=== PATIENT | female | born 1995 | race American Indian/Alaskan Native ===

== ENCOUNTER 2020-02-10 08:33 | Emergency (ER) | payer SELFPAY ==
[2020-02-10 08:39] VITALS: BP 132/90
--- NOTE | 2020-02-10 09:12 | Emergency Department Report ---
ED Chest Pain HPI - General Chief Complaint: Chest Pain Stated Complaint: CHEST TIGHT/LLOYD Time Seen by Provider: 02/10/20 09:12 Source: patient Mode of arrival: Ambulatory Limitations: No Limitations - History of Present Illness Initial Comments: 24 YO AA OB[place] FEMALE COMES TO ER WITH CP WITH DEEP BREATH. SHE HAS DM II. NO N/V/SOB/COUGH/FEVER OR CHILLS. NORMAL VS. AMBULATORY TO ER. NO CARDIAC HX. PMH DM DID NOT TAKE HER METFORMIN TODAY BG HIGH IN TRIAGE NO TACHYCARDIA OR HYPOTENSION NO POLYURIA/THIRST PT TRYING TO GET NEVER PREG IN PAST LMP 12/25 BUT SPOTTING THC JUST STOPPED SMOKING NO RECENT TRAVEL NON ILL APPEARING PAIN SOUNDS PLEURITIC IN NATURE-XRAY TO BENITA MATHEW MD Complaint: chest pain -: Gradual, days(s) Onset: other Pain Location: other (UNDER LEFT RIB CAGE/ NEAR LUQ) Pain Radiation: none Severity: mild Quality: sharp Consistency: intermittent Improves With: nothing Worsens With: inspiration Other Symptoms: denies: cough, fever, syncope, rash, acid taste in mouth, leg swelling, palpitations, burping Treatments Prior to Arrival: none Aspirin use within the Past 7 Days: (0) No - Related Data On Oral Contraceptives: No Allergies Allergy/AdvReac Type Severity Reaction Status Date / Time No Known Allergies Allergy Unverified 02/10/20 08:40 Heart Score - HEART Score History: Slightly suspicious EKG: Normal Age: < 45 Risk factors: No known risk factors Troponin: < normal limit HEART Score: 0 ED Review of Systems ROS: Stated complaint: CHEST TIGHT/LLOYD Other details as noted in HPI Comment: All other systems reviewed and negative ED Past Medical Hx - Past Medical History Previous Medical History?: Yes Hx Diabetes: Yes - Surgical History Past Surgical History?: No - Family History Family history: no significant - Social History Smoking Status: Current Every Day Smoker Substance Use Type: None ED Physical Exam - General Limitations: No Limitations General appearance: alert, in no apparent distress - Head Head exam: Present: atraumatic, normocephalic - Eye Eye exam: Present: normal appearance - ENT ENT exam: Present: mucous membranes moist - Neck Neck exam: Present: normal inspection - Respiratory Respiratory exam: Present: normal lung sounds bilaterally. Absent: respiratory distress - Cardiovascular Cardiovascular Exam: Present: regular rate, normal rhythm. Absent: systolic murmur, diastolic murmur, rubs, gallop - GI/Abdominal GI/Abdominal exam: Present: soft, normal bowel sounds - Extremities Exam Extremities exam: Present: normal inspection - Back Exam Back exam: Present: normal inspection - Neurological Exam Neurological exam: Present: alert, oriented X3 - Psychiatric Psychiatric exam: Present: normal affect, normal mood - Skin Skin exam: Present: warm, dry, intact, normal color. Absent: rash ED Course Vital Signs 02/10/20 08:37 Temperature 97.9 F Pulse Rate 77 Respiratory 20 Rate Blood Pressure 132/90 O2 Sat by Pulse 99 Oximetry TYRONE score - Tyrone Score Age > 65: (0) No Aspirin use within the Past 7 Days: (0) No 3 or more CAD Risk Factors: (0) No 2 or more Angina events in past 24 hrs: (0) No Known CAD with more than 50% Stenosis: (0) No Elevated Cardiac Markers: (0) No ST Deviation Greater than 0.5mm: (0) No TYRONE Score: 0 ED Medical Decision Making - EKG Data -: EKG Interpreted by Ca EKG shows normal: sinus rhythm Rate: normal - EKG Data When compared to previous EKG there are: no significant change Interpretation: no acute changes - Radiology Data Radiology results: report reviewed, image reviewed - Medical Decision Making Labs 02/10/20 02/10/20 08:52 09:15 POC Glucose 314 H Urine Color Straw Urine Turbidity Clear Urine pH 6.0 Ur Specific [place] 1.022 Urine Protein <15 mg/dl Urine Glucose (UA) >=500 Urine Ketones Neg Urine Blood Mod Urine Nitrite Neg Ur Reducing Substances Not Reportable Urine Bilirubin Neg Urine Ictotest Not Reportable Urine Urobilinogen < 2.0 Ur Leukocyte Esterase Neg Urine WBC (Auto) 1.0 Urine RBC (Auto) 3.0 U Epithel Cells (Auto) 2.0 Urine Bacteria (Auto) 1+ Urine Mucus Few Urine HCG, Qual Negative Vital Signs 02/10/20 08:37 Temperature 97.9 F Pulse Rate 77 Respiratory 20 Rate Blood Pressure 132/90 O2 Sat by Pulse 99 Oximetry XRAY NEG NO TACHYCARDIA/HYPOXIA NO CARDIAC HISTORY NEG PREG BG ELEVATED NO KETONURIA EDUCATED ON TAKING METFORMIN AND DIET GIVEN HER METFORMIN HERE IN ED INSTRUCTED TO TAKE OTC MEDS FOR ANY PAIN DC HOME WITH PCP FOLLOW UP PAUL SHE VERBLALIZES UNDERSTANDING - Differential Diagnosis PLEURITIC CP/URTI Critical care attestation.: If time is entered above; I have spent that time in minutes in the direct care of this critically ill patient, excluding procedure time. ED Disposition Clinical Impression: Diabetes mellitus, type II, Hyperglycemia, Non-cardiac chest pain Disposition: DC- TO HOME OR SELFCARE Is pt being admited?: No Does the pt Need Aspirin: No Condition: Stable Instructions: Chest Pain (ED), Diabetes Mellitus Type 2 in Adults (ED) Additional Instructions: DIABETIC DIET TAKE METFORMIN DAILY STAY WELL HYDRATED WITH WATER FOLLOW UP WITH PCP REFERRAL BELOW OVER THE COUNTER MOTRIN FOR PAIN- TAKE 800 MG EVERY 8 HOURS IF NEEDED- TAKE WITH FOOD NEG PREG TEST EKG AND CHEST XRAY NORMAL Referrals: PRIMARY CAREMD [Primary Care Provider] - 3-5 Days JOSE ENG MD [Staff Physician] - 3-5 Days Time of Disposition: 10:13
[2020-02-10 09:35] LABS: HCG Qualitative,Urine Negative (Negative)
[2020-02-10 09:37] LABS: Bacteria,Urine 1+ /HPF (Negative); Bilirubin,Urine NEG (Negative); Blood,Urine MOD (Negative); Color,Urine Straw (Yellow); Mucus,Urine FEW /HPF; Protein,Urine <15 mg/dL mg/dL (Negative); Urobilinogen,Urine < 2.0 mg/dL (<2.0)
--- NOTE | 2020-02-10 10:03 | XRay Report ---
CHEST 1 VIEW INDICATION: Chest Pain. COMPARISON: None FINDINGS: Support devices: None. Heart: Within normal limits. Lungs/Pleura: No acute air space or interstitial disease. Additional findings: None. IMPRESSION: 1. No acute findings. Signer Name: Dmitry Montalvo MD Signed: 02/10/2020 9:58 AM Workstation Name: [id number]
[2020-02-10] MEDS ORDERED: metFORMIN 500 MG TAB PO ONE (10:10)
== END 2020-02-10 10:49 | disposition home or self-care (01) ==
LOC: ED 08:33
DX: R07.89 Other chest pain (principal); E11.65 Type 2 diabetes mellitus with hyperglycemia; F17.200 Nicotine dependence, unspecified, uncomplicated
CPT/HCPCS: 71045; 81001; 81025; 82962; 93005

== ENCOUNTER 2021-04-07 21:56 | Emergency (ER) | payer SELFPAY ==
[2021-04-07] MEDS: IBUPROFEN 800 MG TAB PO ONE (23:27)
[2021-04-08] MEDS: IBUPROFEN 800 MG TAB PO ONE (00:19)
[2021-04-08] MEDS ORDERED: HYDROcodone/ACETAMINOPHEN 5-325 MG TAB PO ONE (06:21)
[2021-04-08] MEDS ORDERED: SULFAMETHOXAZOLE/TRIMETHOPRIM 800/160MG DS TAB PO ONE (06:53)
--- NOTE | 2021-04-08 06:54 | Emergency Department Report ---
HPI - General Chief Complaint: Extremity Injury, Upper Time Seen by Provider: 04/08/21 06:36 - HPI HPI: This is a 26-year-old -[place] female presents to the emergency department with the complaint of right hand pain and some swelling. Initially the patient thinks that she was bit or stung on the top of her right index finger, and there does appear to be a very tiny scab from some type of puncture wound. The pain started in the finger and started to radiate up into the hand. The next day, the patient accidentally hit her hand on the gearshift while trying to work her emergency break in her car and says that she immediately began having severe pain to the back of her right hand. She has not taken anything for symptoms prior to presentation. She is right-hand dominant. She has a past medical history of [id number] diabetes for which she takes Metformin. ED Past Medical Hx - Past Medical History Previous Medical History?: Yes Hx Diabetes: Yes - Surgical History Past Surgical History?: No - Social History Smoking Status: Current Every Day Smoker Substance Use Type: Marijuana - Medications Home Medications: Home Medications Medication Instructions Recorded Confirmed Last Taken Type metFORMIN [Glucophage] 500 mg PO QDAY 30 Days #30 tablet 05/04/20 Unknown Rx HYDROcodone/APAP 5-325 [Palmer 1 each PO Q6HR PRN #12 tablet 04/08/21 Unknown Rx 5/325] Sulfamethoxazole/Trimethoprim 1 each PO BID #14 tablet 04/08/21 Unknown Rx [Bactrim DS TAB] ED Review of Systems ROS: Stated complaint: SWELLING TO HAND RT Other details as noted in HPI Comment: All other systems reviewed and negative Constitutional: denies: chills, fever Eyes: denies: eye pain, vision change ENT: denies: ear pain, throat pain Respiratory: denies: cough, shortness of breath Cardiovascular: denies: chest pain, palpitations Gastrointestinal: denies: abdominal pain, vomiting Genitourinary: denies: dysuria, discharge Musculoskeletal: joint swelling (Right hand), arthralgia (Right hand) Skin: lesions (Some type of bite or sting to the right index finger). denies: rash Neurological: denies: headache, numbness Physical Exam - Physical Exam Vital Signs: Vital Signs 04/07/21 04/08/21 04/08/21 23:07 00:19 01:19 Temperature 98.1 F Pulse Rate 101 H Respiratory 16 16 16 Rate Blood Pressure 127/78 [Left] O2 Sat by Pulse 100 Oximetry Physical Exam: GENERAL: The patient is well-developed well-nourished. HENT: Normocephalic. Atraumatic. Patient has moist mucous membranes. EYES: Extraocular motions are intact. NECK: Supple. Trachea is midline. CHEST/LUNGS: Clear to auscultation. There is no respiratory distress noted. HEART/CARDIOVASCULAR: Regular. There is no tachycardia. There is no murmur. ABDOMEN: Abdomen is soft, nontender. Patient has normal bowel sounds. There is no abdominal distention. SKIN: There is some increased warmth to the dorsal of the right hand but no significant erythema. There is nonpitting swelling of the dorsal right hand and index and middle finger. There is a very small scab to the dorsal portion of the right index finger concerning for a previous puncture wound, bite or sting. NEURO: The patient is awake, alert, and oriented. The patient is cooperative. The patient has no focal neurologic deficits. Normal speech. MUSCULOSKELETAL: There is tenderness to palpation along the right dorsal hand and fingers. The patient is unable to completely make a fist due to swelling and discomfort, but is able to exhibit refractory products supervisor strength, 5 out of 5. Capillary refill less than 2 seconds and radial pulse +2/4 to the affected right hand and wrist. ED Course Vital Signs 04/07/21 04/08/21 04/08/21 23:07 00:19 01:19 Temperature 98.1 F Pulse Rate 101 H Respiratory 16 16 16 Rate Blood Pressure 127/78 [Left] O2 Sat by Pulse 100 Oximetry ED Medical Decision Making - Radiology Data Radiology results: image reviewed interpreted by me: X-ray of the right hand does not show any fracture, dislocations, signs of osteomyelitis, soft tissue gas, or any other acute process. - Medical Decision Making This patient presents to the emergency department with right hand pain and swelling. Initially there was concern for a insect bite or sting to the index finger of the right hand. The next day the patient also accidentally hit her dorsal hand on the gearshift in her car and said that she had immediate pain. On examination she is neurovascularly intact. She is able to move the hand and fingers, however she is unable to completely make a fist due to the pain and swelling. She is able to exhibit refractory products supervisor strength. X-ray of the hand did not show any fracture, dislocation, soft tissue gas, signs of osteomyelitis, or any acute process. The patient had an Accu-Chek that came back at about 300. She has not yet taken 3 different diabetes medications, including sliding scale insulin, yet this morning and therefore the patient will be discharged home to take her medications and check her blood sugar regularly. Patient was given pain medication and antibiotics. We discussed further monitoring for any increased swelling, development of fever or redness, increased pain, decreased range of mo tion of the hand or fingers, or any other signs or symptoms which require an immediate return to the emergency department. She has been given outpatient referrals for an orthopedist and instructed to follow-up with a PCP. Vital signs reassuring including being afebrile. Critical Care Time: No Critical care attestation.: If time is entered above; I have spent that time in minutes in the direct care of this critically ill patient, excluding procedure time. ED Disposition Clinical Impression: Hand pain, right, Hyperglycemia Cellulitis Qualifiers: Site of cellulitis: extremity Site of cellulitis of extremity: upper extremity Laterality: right Qualified Code(s): L03.113 - Cellulitis of right upper limb Hand contusion Qualifiers: Encounter type: initial encounter Laterality: right Qualified Code(s): S60.221A - Contusion of right hand, initial encounter Disposition: DC- TO HOME OR SELFCARE Is pt being admited?: No Condition: Stable Instructions: Cellulitis, Adult, Contusion, Hyperglycemia, Blood Glucose Monitoring, Adult, Hand Pain Additional Instructions: Please follow-up with a primary care physician in the next few days. Take all medications as prescribed. Try to stay away from foods that are high in sugar, carbohydrates and starches. Keep a blood sugar log. Please monitor your hand for any increased signs of infection such as increased pain, increased swelling, development of redness to the skin, development of fever. You have been prescribed a medication that is sedating and therefore should not be taken prior to driving, working, and responsible for children and in no way should be mixed with alcohol of any quantity. Return to the emergency department with any worsening of your symptoms, new or concerning symptoms not addressed during this current emergency department visit, or with any acute distress. Prescriptions: Sulfamethoxazole/Trimethoprim [Bactrim DS TAB] 1 each PO BID #14 tablet HYDROcodone/APAP 5-325 [Palmer 5/325] 1 each PO Q6HR PRN #12 tablet PRN Reason: Pain Referrals: [facility] [Provider Group] - 3-5 Days Time of Disposition: 07:33
--- NOTE | 2021-04-08 07:03 | XRay Report ---
Right hand 3 views INDICATION: Right hand pain and swelling IMPRESSION: Prominent swelling identified along the dorsal aspect of the right hand. No underlying os seous abnormality. Signer Name: Frantz Mcintyre MD Signed: 04/08/2021 6:58 AM Workstation Name: [id number]
[2021-04-08 08:12] VITALS: BP 139/82
== END 2021-04-08 08:14 | disposition home or self-care (01) ==
LOC: ED 21:56
DX: S60.221A Contusion of right hand, initial encounter (principal); L03.113 Cellulitis of right upper limb; M79.641 Pain in right hand; E11.65 Type 2 diabetes mellitus with hyperglycemia; F12.90 Cannabis use, unspecified, uncomplicated; F17.200 Nicotine dependence, unspecified, uncomplicated; Z79.899 Other long term (current) drug therapy; X58.XXXA Exposure to other specified factors, initial encounter; Y93.89 Activity, other specified; Y92.89 Other specified places as the place of occurrence of the external cause; Y99.8 Other external cause status
CPT/HCPCS: 82962

== ENCOUNTER 2021-06-06 20:09 | Emergency (ER) | payer SELFPAY ==
[2021-06-07 01:26] LABS: Basophils # (Auto) 0.1 K/mm3 (0.0-0.1); Basophils % (Auto) 0.5 % (0.0-1.8); Hematocrit 46.1 % (30.3-42.9); Hemoglobin 15.6 gm/dl (10.1-14.3); Lymphocytes # (Auto) 2.4 K/mm3 (1.2-5.4); Lymphocytes % (Auto) 15.5 % (13.4-35.0); Mean Corpuscular HGB Conc 34 % (30-34); Mean Corpuscular Volume 86 fl (79-97); Monocytes # (Auto) 0.9 K/mm3 (0.0-0.8); Monocytes % (Auto) 5.9 % (0.0-7.3); Platelet Count 462 K/mm3 (140-440); Red Blood Count 5.37 M/mm3 (3.65-5.03); Red Cell Distribution Width 12.8 % (13.2-15.2)
[2021-06-07 01:49] LABS: Blood Urea Nitrogen 16 mg/dL (7-17); Calcium 10.5 mg/dL (8.4-10.2); Hemolysis Index 20
[2021-06-07 01:50] LABS: BUN/Creatinine Ratio 23
[2021-06-07] MEDS: ONDANSETRON 4 MG ODT TAB PO ONE ×2 (03:08→11:11)
[2021-06-07 06:48] LABS: Bilirubin,Urine NEG (Negative); Blood,Urine SM (Negative); Color,Urine Yellow (Yellow); Mucus,Urine FEW /HPF; Urobilinogen,Urine < 2.0 mg/dL (<2.0)
[2021-06-07 06:49] LABS: HCG Qualitative,Urine Negative (Negative)
[2021-06-07] MEDS ORDERED: ONDANSETRON 4 MG/2 ML INJ IV ONE (09:12)
[2021-06-07] MEDS ORDERED: SODIUM CHLORIDE 0.9% 1000 ML 2,000 ML IV ONE (09:12)
--- NOTE | 2021-06-07 10:34 | Emergency Department Report ---
ED N/V/D HPI - General Chief complaint: Abdominal Pain Stated complaint: BEEN VOMITING SINCE Time Seen by Provider: 06/07/21 09:32 Source: patient Mode of arrival: Ambulatory Limitations: No Limitations - History of Present Illness Initial comments: 26-year-old female, history of diabetes, presents to ED with nausea and vomiting x4 days. Patient reports abdominal pain only when she is vomiting. She denies any fever, diarrhea, loss of smell or taste, cough. Patient reports she started having some shortness of breath when she arrived to the ED. Patient has NOT received a COVID-19 vaccine. Patient has not been tested for COVID-19 either. MD complaint: nausea, vomiting -: days(s) (4) Associated Abdominal Pain: No Severity: moderate Consistency: constant Improves with: none Worsens with: eating Associated Symptoms: headaches, shortness of breath, weakness. denies: cough, fever/chills - Related Data Previous Rx's Medication Instructions Recorded Last Taken Type metFORMIN [Glucophage] 500 mg PO QDAY 30 Days #30 tablet 05/04/20 06/06/21 Rx Ondansetron [Zofran Odt] 4 mg PO Q8HR PRN #20 tab.rapdis 06/07/21 Unknown Rx Allergies Allergy/AdvReac Type Severity Reaction Status Date / Time No Known Allergies Allergy Unverified 02/10/20 08:40 ED Review of Systems ROS: Stated complaint: BEEN VOMITING SINCE Other details as noted in HPI Comment: All other systems reviewed and negative Constitutional: denies: fever Respiratory: shortness of breath. denies: cough Gastrointestinal: nausea, vomiting. denies: abdominal pain, diarrhea Skin: denies: rash ED Past Medical Hx - Past Medical History Hx Diabetes: Yes - Social History Smoking Status: Current Every Day Smoker Substance Use Type: Marijuana - Medications Home Medications: Home Medications Medication Instructions Recorded Confirmed Last Taken Type metFORMIN [Glucophage] 500 mg PO QDAY 30 Days #30 tablet 05/04/20 06/07/21 06/06/21 Rx Ondansetron [Zofran Odt] 4 mg PO Q8HR PRN #20 tab.rapdis 06/07/21 Unknown Rx ED Physical Exam - General Limitations: No Limitations General appearance: alert, in no apparent distress - Head Head exam: Present: atraumatic, normocephalic - Eye Eye exam: Present: normal appearance, EOMI - ENT ENT exam: Present: mucous membranes moist - Neck Neck exam: Present: normal inspection - Respiratory Respiratory exam: Present: normal lung sounds bilaterally. Absent: respiratory distress - Cardiovascular Cardiovascular Exam: Present: regular rate, normal rhythm - GI/Abdominal GI/Abdominal exam: Present: soft. Absent: distended, tenderness - Extremities Exam Extremities exam: Present: normal inspection - Neurological Exam Neurological exam: Present: alert, oriented X3 - Psychiatric Psychiatric exam: Present: normal affect, normal mood - Skin Skin exam: Present: warm, dry, intact, normal color ED Course Vital Signs 06/07/21 06/07/21 06/07/21 00:37 11:14 12:11 Temperature 98.0 F 97.1 F L 98.6 F Pulse Rate 101 H 55 L 68 Respiratory 18 16 20 Rate Blood Pressure 133/98 144/93 Blood Pressure 130/88 [Left] O2 Sat by Pulse 97 98 99 Oximetry ED Medical Decision Making - Lab Data Result diagrams: 06/07/21 00:57 06/07/21 00:57 - Radiology Data Radiology results: report reviewed, image reviewed - Medical Decision Making 26-year-old female, history of diabetes, presents to ED with nausea and vomiting x4 days. Patient denies any abdominal pain, except for when she is actively vomiting. Patient is afebrile. WBCs are elevated to 15.2. Abdomen is soft, nontender. Glucose is elevated to 377, however patient does not appear to be in DKA. Patient given p.o. Zofran. No further emesis here in the ED. Patient able to drink 2 cups of water.vomiting. Patient feels comfortable with discharge home. Acute abdominal series shows no acute findings in the chest or abdomen. Patient will be discharged home with prescriptions. Patient advised to obtain outpatient COVID-19 testing. Return precautions given. - Differential Diagnosis Viral illness, DKA, bowel obstruction Critical care attestation.: If time is entered above; I have spent that time in minutes in the direct care of this critically ill patient, excluding procedure time. ED Disposition Clinical Impression: Nausea & vomiting, Hyperglycemia due to type 2 diabetes mellitus Disposition: HOME / SELF CARE / HOMELESS Is pt being admited?: No Condition: Stable Instructions: COVID-19, Nausea and Vomiting, Adult, [id number], Diabetes Mellitus Type 2 in Adults (ED), Abdominal Pain (ED) Additional Instructions: It is advised that you obtain outpatient COVID-19 testing. Quarantine as necessary. Return to emergency room if your symptoms worsen. Prescriptions: Ondansetron [Zofran Odt] 4 mg PO Q8HR PRN #20 tab.rapdis PRN Reason: Vomiting Referrals: PRIMARY CARE, [Primary Care Provider] - 3-5 Days [facility] [Provider Group] - 3-5 Days Forms: Work/School Release Form(ED) Time of Disposition: 11:59
--- NOTE | 2021-06-07 11:10 | XRay Report ---
ABDOMINAL SERIES WITH CHEST X-RAY ONE VIEW HISTORY: Vomiting, shortness of breath COMPARISON: None. IMPRESSION: Single view of the chest is within normal limits. Supine and upright views of the abdomen demonstrate no evidence for dilated bowel, fluid levels or free air. No pathologic calcifications. U nremarkable abdominal series. Signer Name: Rob Hanna Jr, MD Signed: 06/07/2021 11:06 AM Workstation Name: [id number]
[2021-06-07 12:13] VITALS: BP 130/88
== END 2021-06-07 12:11 | disposition home or self-care (01) ==
LOC: ED 20:09
DX: E11.65 Type 2 diabetes mellitus with hyperglycemia (principal); R11.2 Nausea with vomiting, unspecified; F17.200 Nicotine dependence, unspecified, uncomplicated; F12.90 Cannabis use, unspecified, uncomplicated; Z79.899 Other long term (current) drug therapy
CPT/HCPCS: 36415; 74022; 80048; 81001; 81025; 85025; 99284; J7030; J2405; Q0162

== ENCOUNTER 2021-07-18 20:22 | Emergency (ER) | payer SELFPAY ==
[2021-07-18 20:53] VITALS: BP 120/88
[2021-07-18] MEDS ORDERED: SODIUM CHLORIDE 0.9% 1000 ML 1,000 ML IV ONE (21:05)
[2021-07-18] MEDS ORDERED: ONDANSETRON 4 MG/2 ML INJ IV STA (21:05)
[2021-07-18 21:37] LABS: Basophils # (Auto) 0.1 K/mm3 (0.0-0.1); Basophils % (Auto) 0.4 % (0.0-1.8); Eosinophils % (Auto) 0.1 % (0.0-4.3); Hematocrit 41.7 % (30.3-42.9); Hemoglobin 14.4 gm/dl (10.1-14.3); Lymphocytes # (Auto) 2.3 K/mm3 (1.2-5.4); Lymphocytes % (Auto) 14.1 % (13.4-35.0); Mean Corpuscular HGB Conc 35 % (30-34); Mean Corpuscular Volume 85 fl (79-97); Monocytes % (Auto) 6.3 % (0.0-7.3); Platelet Count 425 K/mm3 (140-440); Red Blood Count 4.93 M/mm3 (3.65-5.03); Red Cell Distribution Width 13.3 % (13.2-15.2)
[2021-07-18 21:48] LABS: Alanine Aminotransferase 6 units/L (7-56); Albumin 3.9 g/dL (3.9-5); Blood Urea Nitrogen 10 mg/dL (7-17); Calcium 9.4 mg/dL (8.4-10.2); Hemolysis Index 26
[2021-07-18 22:02] LABS: BUN/Creatinine Ratio 14
--- NOTE | 2021-07-18 22:06 | Emergency Department Report ---
ED N/V/D HPI - General Chief complaint: Nausea/Vomiting/Diarrhea Stated complaint: VOMITTING,NAUSEATED, WEAKNESS Time Seen by Provider: 07/18/21 21:05 Source: patient Mode of arrival: Ambulatory Limitations: No Limitations - History of Present Illness Initial comments: 26-year-old F [place] female [facility] emerge department complaining of a few day history of nausea and vomiting without diarrhea with a suspicion of Mr. For the last couple months. Ports no fever, chills, sweats. No hemoptysis no hematemesis hematochezia. She reports no abdominal no trauma. MD complaint: nausea, vomiting Location: diffuse Radiation: none Quality: aching, dull Consistency: constant Worsens with: eating Associated Symptoms: nausea/vomiting. denies: cough, diaphoresis, loss of a ppetite, malaise, shortness of breath, syncope - Related Data Previous Rx's Medication Instructions Recorded Last Taken Type metFORMIN [Glucophage] 500 mg PO QDAY 30 Days #30 tablet 05/04/20 06/06/21 Rx Ondansetron [Zofran Odt] 4 mg PO Q8HR PRN #20 tab.rapdis 06/07/21 Unknown Rx Ondansetron [Zofran Odt] 4 mg PO Q8HR #14 tab.rapdis 07/19/21 Unknown Rx Allergies Allergy/AdvReac Type Severity Reaction Status Date / Time No Known Allergies Allergy Verified 07/18/21 21:05 ED Review of Systems ROS: Stated complaint: VOMITTING,NAUSEATED, WEAKNESS Other details as noted in HPI Comment: All other systems reviewed and negative ED Past Medical Hx - Past Medical History Previous Medical History?: Yes Hx Diabetes: Yes - Surgical History Past Surgical History?: No - Social History Smoking Status: Current Some Day Smoker Substance Use Type: Marijuana - Medications Home Medications: Home Medications Medication Instructions Recorded Confirmed Last Taken Type metFORMIN [Glucophage] 500 mg PO QDAY 30 Days #30 tablet 05/04/20 06/07/21 06/06/21 Rx Ondansetron [Zofran Odt] 4 mg PO Q8HR PRN #20 tab.rapdis 06/07/21 Unknown Rx Ondansetron [Zofran Odt] 4 mg PO Q8HR #14 tab.rapdis 07/19/21 Unknown Rx ED Physical Exam - General Limitations: No Limitations General appearance: alert, in no apparent distress - Head Head exam: Present: atraumatic, normocephalic - Eye Eye exam: Present: normal appearance, PERRL, EOMI Pupils: Present: normal accommodation - ENT ENT exam: Present: normal exam, mucous membranes moist - Neck Neck exam: Present: normal inspection - Respiratory Respiratory exam: Present: normal lung sounds bilaterally. Absent: respiratory distress - Cardiovascular Cardiovascular Exam: Present: regular rate, normal rhythm. Absent: systolic murmur, diastolic murmur, rubs, gallop - GI/Abdominal GI/Abdominal exam: Present: soft, normal bowel sounds - Extremities Exam Extremities exam: Present: normal inspection - Back Exam Back exam: Present: normal inspection - Neurological Exam Neurological exam: Present: alert, oriented X3 - Psychiatric Psychiatric exam: Present: normal affect, normal mood - Skin Skin exam: Present: warm, dry, intact, normal color. Absent: rash ED Course Vital Signs 07/18/21 20:49 Temperature 98.3 F Pulse Rate 85 Respiratory 18 Rate Blood Pressure 120/88 O2 Sat by Pulse 97 Oximetry ED Medical Decision Making - Lab Data Result diagrams: 07/18/21 21:16 07/18/21 21:16 - Medical Decision Making The cause of the patient symptoms not clear but the patient is overall well- appearing and suspected to have a transient course of illness. Given the course and examination does not appear to be an emergent cause of the symptoms such as small bowel obstruction, coronary syndrome, bowel ischemia, DKA, pancreatitis, appendicitis, other acute abdomen or other emergent problem. Reassessment after treatment the patient is feeling much much better tolerating p.o. fluids and shows no signs of any dehydration. Disposition discharge home with prompt primary care physician follow-up in the next 24 hours strict return precautions were discussed Critical care attestation.: If time is entered above; I have spent that time in minutes in the direct care of this critically ill patient, excluding procedure time. ED Disposition Clinical Impression: Nausea & vomiting Disposition: 01 HOME / SELF CARE / HOMELESS Is pt being admited?: No Does the pt Need Aspirin: No Condition: Stable Instructions: Nausea, Adult, Nausea and Vomiting, Adult Additional Instructions: You have been evaluated emergency department today for nausea and vomiting and vague abdominal discomfort. Your evaluation did not show evidence of any medical conditions requiring emergent intervention at this time. Your lipase was it was elevated but not to a significant degree significant pancreatitis does not appear to be present at this time please drink plenty of fluids. Please schedule an appointment with your primary care physician. Return to emergency department if you experience worsening uncontrolled pain, fevers of 100.4 or greater, recurrent vomiting, inability to tolerate food or fluids by mouth, bloody stools or vomit, black tarry stools, or any other concerning symptoms. Prescriptions: Ondansetron [Zofran Odt] 4 mg PO Q8HR #14 tab.rapdis Referrals: PRIMARY CARE, [Primary Care Provider] - 3-5 Days [facility] [Provider Group] - 3-5 Days
[2021-07-19 06:02] LABS: Bacteria,Urine 1+ /HPF (Negative); Bilirubin,Urine MOD (Negative); Blood,Urine NEG (Negative); Color,Urine Amber (Yellow); Mucus,Urine 3+ /HPF
[2021-07-19 06:09] LABS: HCG Qualitative,Urine Negative (Negative)
[2021-07-19 06:46] LABS: Ictotest,Urine Negative (Negative)
== END 2021-07-19 05:35 | disposition home or self-care (01) ==
LOC: ED 20:22
DX: R11.2 Nausea with vomiting, unspecified (principal); E11.9 Type 2 diabetes mellitus without complications; F17.200 Nicotine dependence, unspecified, uncomplicated; Z72.89 Other problems related to lifestyle; Z79.899 Other long term (current) drug therapy
CPT/HCPCS: 36415; 80053; 81001; 81025; 83690; 85025; 96361; 96374; 99283; J2405; J7030

== ENCOUNTER 2022-05-18 09:15 | Emergency (ER) | payer SELFPAY ==
[2022-05-18 09:43] VITALS: BP 118/81
--- NOTE | 2022-05-18 10:36 | XRay Report ---
RIGHT ELBOW 3 VIEW(S) INDICATION / CLINICAL INFORMATION: injury COMPARISON: None available. FINDINGS: BONES / JOINT(S): No acute fracture or subluxation. No significant arthritis. SOFT TISSUES: No significant abnormality. ADDITIONAL FINDINGS: None. IMPRESSION: 1. No acute findings. Signer Name: Gautam Driver MD Signed: 05/18/2022 10:32 AM Workstation Name: [facility]
[2022-05-18] MEDS ORDERED: KETOROLAC 10 MG TAB PO ONE (10:47)
[2022-05-18] MEDS ORDERED: ACETAMINOPHEN W/CODEINE 300-30 MG TAB PO ONE (10:47)
--- NOTE | 2022-05-18 11:03 | Emergency Department Report ---
ED Fall HPI - General Chief Complaint: Extremity Injury, Upper Stated Complaint: RT ARM/ELBOW INJURY Time Seen by Provider: 05/18/22 10:40 Source: patient Mode of arrival: Ambulatory - History of Present Illness Initial Comments: 27-year-old black female with a past medical history of diabetes presents to the emergency department for evaluation of right elbow pain. She states that she fell off of a 6 step ladder 2 days ago and has had right elbow pain since then. She denies loss of consciousness. MD Complaint: fall -: Sudden, days(s) (1) Fall From: other (6 stepladder) When Fall Occurred: 24 hours [employer] Fall Witnessed: yes, by family Prolonged Down Time?: no Symptoms Prior to Fall: none Location - Extremities: Right: Elbow Severity: severe Severity scale (0 -10): 9 Quality: aching Associated Symptoms: denies: headache, neck pain, chest paint, shortness of breath, abdominal pain, hematuria, unable to walk, lightheaded, vertigo, confusion - Related Data Previous Rx's Medication Instructions Recorded Last Taken Type metFORMIN [Glucophage] 500 mg PO QDAY 30 Days #30 tablet 05/04/20 06/06/21 Rx Ondansetron [Zofran Odt] 4 mg PO Q8HR PRN #20 tab.rapdis 06/07/21 Unknown Rx Ondansetron [Zofran Odt] 4 mg PO Q8HR #14 tab.rapdis 07/19/21 Unknown Rx Cyclobenzaprine [Flexeril] 10 mg PO TID PRN #30 tab 05/18/22 Unknown Rx Naproxen [Naprosyn] 500 mg PO BID #14 tab 05/18/22 Unknown Rx Allergies Allergy/AdvReac Type Severity Reaction Status Date / Time No Known Allergies Allergy Verified 07/18/21 21:05 ED Review of Systems ROS: Stated complaint: RT ARM/ELBOW INJURY Other details as noted in HPI Comment: All other systems reviewed and negative Constitutional: denies: chills, fever Eyes: denies: vision change Respiratory: denies: shortness of breath Cardiovascular: denies: chest pain, palpitations Gastrointestinal: denies: abdominal pain, nausea, vomiting Musculoskeletal: denies: back pain Neurological: denies: headache, weakness ED Past Medical Hx - Past Medical History Hx Diabetes: Yes - Surgical History Past Surgical History?: No - Social History Smoking Status: Current Some Day Smoker Substance Use Type: Marijuana - Medications Home Medications: Home Medications Medication Instructions Recorded Confirmed Last Taken Type metFORMIN [Glucophage] 500 mg PO QDAY 30 Days #30 tablet 05/04/20 06/07/21 Rx Ondansetron [Zofran Odt] 4 mg PO Q8HR PRN #20 tab.rapdis 06/07/21 Unknown Rx Ondansetron [Zofran Odt] 4 mg PO Q8HR #14 tab.rapdis 07/19/21 Unknown Rx Cyclobenzaprine [Flexeril] 10 mg PO TID PRN #30 tab 05/18/22 Unknown Rx Naproxen [Naprosyn] 500 mg PO BID #14 tab 05/18/22 Unknown Rx ED Physical Exam - General Limitations: No Limitations General appearance: alert, in no apparent distress - Head Head exam: Present: atraumatic, normocephalic - Eye Eye exam: Present: normal appearance. Absent: conjunctival injection - Neck Neck exam: Present: normal inspection, full ROM. Absent: tenderness, lymphadenopathy - Respiratory Respiratory exam: Absent: respiratory distress - Cardiovascular Cardiovascular Exam: Present: regular rate - GI/Abdominal GI/Abdominal exam: Absent: distended, tenderness - Extremities Exam Extremities exam: Present: normal inspection - Expanded Upper Extremity Exam Right Shoulder Exam: Present: normal inspection, full ROM, tenderness. Absent: swelling, abrasion, laceration, ecchymosis, deformity, crepidus, dislocation, erythema Elbow exam: Present: normal inspection, tenderness. Absent: full ROM, swelling, abrasion, laceration, ecchymosis, deformity, crepidus, dislocation, erythema, effusion Forearm Wrist exam: Present: normal inspection Hand Wrist exam: Present: normal inspection Vascular: Present: normal capillary refill, radial pulse. Absent: vascular compromise, Pallo - Back Exam Back exam: Present: normal inspection. Absent: tenderness, vertebral tenderness - Neurological Exam Neurological exam: Present: alert, oriented X3 - Psychiatric Psychiatric exam: Present: normal affect, normal mood - Skin Skin exam: Present: warm, dry, intact, normal color ED Course Vital Signs 05/18/22 09:40 Temperature 98.2 F Pulse Rate 83 Respiratory 18 Rate Blood Pressure 118/81 [Left] O2 Sat by Pulse 99 Oximetry ED Medical Decision Making - Radiology Data Radiology results: report reviewed, image reviewed Right elbow xray: FINDINGS: BONES / JOINT(S): No acute fracture or subluxation. No significant arthritis. SOFT TISSUES: No significant abnormality. ADDITIONAL FINDINGS: None. IMPRESSION: 1. No acute findings. - Medical Decision Making 27-year-old black female with a past medical history of diabetes presents to the emergency department for evaluation of right elbow pain. She states that she fell off of a 6 step ladder 2 days ago and has had right elbow pain since then. She denies loss of consciousness. Right elbow xray without any acute abnormalities noted. She will be discharged with pain management and advised to follow up with her pcp or orthopedics if no improvement or worsening symptoms. She is advised to return to ED as needed. She verbalizes understanding of and agreement with plan of care. Critical care attestation.: If time is entered above; I have spent that time in minutes in the direct care of this critically ill patient, excluding procedure time. ED Disposition Clinical Impression: Right elbow pain Fall Qualifiers: Encounter type: initial encounter Qualified Code(s): W19.XXXA - Unspecified fall, initial encounter Disposition: 01 HOME / SELF CARE / HOMELESS Is pt being admited?: No Does the pt Need Aspirin: No Condition: Stable Instructions: How to Use Cold Therapy, [id number], Musculoskeletal Pain, Joint Pain, [id number] Additional Instructions: Take medications as prescribed. Follow-up with your primary care provider if no improvement or worsening symptoms. Return to the emergency department as needed. Prescriptions: Cyclobenzaprine [Flexeril] 10 mg PO TID PRN #30 tab PRN Reason: Muscle Spasm Naproxen [Naprosyn] 500 mg PO BID #14 tab Referrals: PRIMARY MD BHUMIKA [Primary Care Provider] - 3-5 Days JOSE ENG MD [Staff Physician] - 3-5 Days Forms: Work/School Release Form(ED) Time of Disposition: 11:06
== END 2022-05-18 11:23 | disposition home or self-care (01) ==
LOC: ED 09:15
DX: M25.521 Pain in right elbow (principal); F12.90 Cannabis use, unspecified, uncomplicated; F17.200 Nicotine dependence, unspecified, uncomplicated; E11.9 Type 2 diabetes mellitus without complications; W19.XXXA Unspecified fall, initial encounter; Y93.89 Activity, other specified; Y92.89 Other specified places as the place of occurrence of the external cause; Y99.8 Other external cause status
CPT/HCPCS: 99283